=== PATIENT | female | born 1960 | race African-American/Black ===

== ENCOUNTER 2021-04-30 17:46 | Observation (INO) ==
[2021-04-30] MEDS ORDERED: DEXTROSE 50% 25 GM/50 ML VIAL IV PRN ×2 (19:58→20:07)
[2021-04-30] MEDS ORDERED: GLUCAGON 1 MG VIAL IM PRN ×2 (19:58→20:07)
[2021-04-30 20:39] LABS: Basophils # 0.1 10*3/uL (0.0-0.2); Basophils % 0.7 % (0.0-0.8); Eosinophils # 0.2 10*3/uL (0.0-0.87); Eosinophils % 1.5 % (0.00-10.9); Immature Granulocytes % 0.2 %; Immature Granulocytes Absolute 0.02 #; Lymphocytes % 49.3 % (21.3-54.2); Mean Corpuscular Volume 92.1 FL (87-102); Mean Platelet Volume 11.6 FL (9.6-12.0); Monocytes % 6.9 % (1.7-12.7); Neutrophils % 41.4 % (38.7-73.9); Platelet Count 216 T/CUMM (130-400); Red Blood Count 4.56 MC/CUMM (3.8-5.5); Red Cell Distribution Width 13.2 % (9.3-17.3); White Blood Count 10.1 T/CUMM (4-12)
[2021-04-30 21:12] LABS: Albumin 3.5 G/DL (3.4-5.0); Bilirubin,Total 0.6 MG/DL (0.2-1.0); Calcium 8.7 MG/DL (8.5-10.1); Osmolality,Calculated 280.4 MOS/KG (273-304); Potassium 3.7 MMOL/L (3.5-5.1); Thyroid Stimulating Hormone 0.52 uIU/ml (0.358-3.74); Total Protein 7.6 G/DL (6.4-8.2)
[2021-04-30] MEDS: hydrALAZINE 20 MG/1 ML VIAL IV PRN (22:14)
[2021-04-30] MEDS: INSULIN LISPRO 100 UNIT/ML SUBCUT SCH (22:18)
[2021-05-01] MEDS: ACETAMINOPHEN 325 MG TABLET PO PRN ×2 (00:55→15:22)
[2021-05-01 01:31] LABS: Basophils # 0.1 10*3/uL (0.0-0.2); Basophils % 0.6 % (0.0-0.8); Eosinophils # 0.2 10*3/uL (0.0-0.87); Eosinophils % 1.9 % (0.00-10.9); Hematocrit 41.5 VOL% (35.7-47.0); Hemoglobin 12.9 GM/DL (12.0-16.0); Immature Granulocytes % 0.3 %; Immature Granulocytes Absolute 0.03 #; Lymphocytes # 3.9 10*3/uL (1.4-4.0); Lymphocytes % 43.9 % (21.3-54.2); Mean Corpuscular HGB Conc 31.1 GM/DL (32-36); Mean Corpuscular Volume 92.2 FL (87-102); Mean Platelet Volume 11.7 FL (9.6-12.0); Monocytes % 7.9 % (1.7-12.7); Neutrophils % 45.4 % (38.7-73.9); Platelet Count 230 T/CUMM (130-400); Red Cell Distribution Width 13.3 % (9.3-17.3)
[2021-05-01 02:04] LABS: Albumin 3.4 G/DL (3.4-5.0); Bilirubin,Total 0.7 MG/DL (0.2-1.0); Calcium 8.6 MG/DL (8.5-10.1); Osmolality,Calculated 284.4 MOS/KG (273-304); Potassium 3.2 MMOL/L (3.5-5.1); Risk Ratio 3.09; Total Protein 6.8 G/DL (6.4-8.2); VLDL CHOLESTEROL 20.4 MG/DL
[2021-05-01] MEDS ORDERED: POTASSIUM CHLORIDE 20 MEQ TABLET PO ONE (07:38)
[2021-05-01] MEDS ORDERED: MAGNESIUM SULF RIDER 2 GM/50 ML PREMIX IV ONE (07:39)
[2021-05-01] MEDS ORDERED: ACETAMINOPHEN/CODEINE 300-30 MG TABLET PO ONE (09:50)
[2021-05-01] MEDS ORDERED: SERTRALINE 25 MG TABLET PO SCH (10:00)
[2021-05-01] MEDS: INSULIN LISPRO 100 UNIT/ML SUBCUT SCH ×2 (10:27→11:55)
[2021-05-01] MEDS ORDERED: LOSARTAN 50 MG TABLET PO SCH (11:13)
[2021-05-01] MEDS: hydrALAZINE 20 MG/1 ML VIAL IV PRN (11:53)
[2021-05-01 16:18] VITALS: BP 184/111
== END 2021-05-01 15:30 | disposition home or self-care (01) ==
LOC: N.TELEN → SUATTDRO 18:54
PROVIDERS: ADMIT Internal Medicine; ATTEND Internal Medicine